=== PATIENT | female | born 1990 | race Caucasian/White ===

== ENCOUNTER 2016-07-27 00:32 | Emergency (ER) | payer SELFPAY ==
[2016-07-27 00:37] VITALS: BMI 27.3
[2016-07-27] MEDS ORDERED: Sodium Chloride 0.9% 1,000 ML IV STA (00:51)
[2016-07-27 00:52] VITALS: TEMP 97.9
--- NOTE | 2016-07-27 00:52 | ED PDOC ---
Arrival/HPI - General Chief Complaint: Shortness Of Breath Time Seen by Provider: 07/27/16 00:35 Historian: Patient, Spouse - History of Present Illness Narrative History of Present Illness (Text): 07/27/16 00:47 Savi Fabian is a 25 year old female who presents to the ED accompanied by spouse complaining epigastric pain. states patient began experiencing epigastric pain, worsened with deep inspirations, and shortness of breath tonight. notes patient recently gave 1 1/2 months ago. Patient denies any fever, chills, chest pain, nausea, vomiting, diarrhea, urinary symptoms, back pain, neck pain, headache, dizziness, or any other complaints. Time/Duration: Prior to Arrival Symptom Course: Unchanged Activities at Onset: Rest, Light Context: Home Past Medical History - Provider Review Nursing Documentation Reviewed: Yes - Cardiac Hx Cardiac Disorders: No - Pulmonary Hx Respiratory Disorders: No - Neurological Hx Neurological Disorder: No - HEENT Hx HEENT Disorder: No - Renal Hx Renal Disorder: No - Endocrine/Metabolic Hx Endocrine Disorders: No - Hematological/Oncological Hx Blood Disorders: No - Integumentary Hx Dermatological Disorder: No - Musculoskeletal/Rheumatological Hx Musculoskeletal Disorders: No - Gastrointestinal Hx Gastrointestinal Disorders: No - Genitourinary/Gynecological Hx Genitourinary Disorders: No - Psychiatric Hx Psychophysiologic Disorder: No Hx Substance Use: No - Anesthesia Hx Anesthesia: No Hx Anesthesia Reactions: No Family/Social History - Physician Review Nursing Documentation Reviewed: Yes Family/Social History: No Known Family HX Smoking Status: Never Smoked Hx Alcohol Use: No Hx Substance Use: No Allergies/Home Meds Allergies/Adverse Reactions: Allergies No Known Allergies Allergy (Verified 07/27/16 00:36) Review of Systems - Physician Review All systems were reviewed & negative as marked: Yes - Review of Systems Constitutional: Normal. absent: Fevers Eyes: Normal ENT: Normal Respiratory: SOB. absent: Cough Cardiovascular: Normal. absent: Chest Pain Gastrointestinal: Abdominal Pain. absent: Diarrhea, Nausea, Vomiting Genitourinary Female: Normal. absent: Dysuria, Frequency, Hematuria, Urine Output Changes Musculoskeletal: Normal. absent: Back Pain, Neck Pain Skin: Normal. absent: Rash Neurological: Normal. absent: Headache, Dizziness Endocrine: Normal Hemo/Lymphatic: Normal Psychiatric: Normal Physical Exam Vital Signs Reviewed: Yes Vital Signs Temp Pulse Resp BP Pulse Ox 07/27/16 02:33 76 16 98 07/27/16 02:16 82 20 111/72 99 07/27/16 00:51 97.9 F 76 20 131/78 100 07/27/16 00:45 16 100 07/27/16 00:37 82 18 98 Temperature: Afebrile Blood Pressure: Normal Pulse: Regular Respiratory Rate: Normal Appearance: Positive for: Well-Appearing, Non-Toxic, Comfortable Pain Distress: None Mental Status: Positive for: Alert and Oriented X 3 - Systems Exam Head: Present: Atraumatic, Normocephalic Pupils: Present: PERRL Extroacular Muscles: Present: EOMI Conjunctiva: Present: Normal Mouth: Present: Moist Mucous Membranes Neck: Present: Normal Range of Motion Respiratory/Chest: Present: Clear to Auscultation, Good Air Exchange. No: Respiratory Distress, Accessory Muscle Use Cardiovascular: Present: Regular Rate and Rhythm, Normal S1, S2. No: Murmurs Abdomen: Present: Tenderness (Epigastric tenderness), Normal Bowel Sounds. No: Distention, Peritoneal Signs Back: Present: Normal Inspection Upper Extremity: Present: Normal Inspection. No: Cyanosis, Edema Lower Extremity: Present: Normal Inspection. No: Edema Neurological: Present: GCS=15, CN II-XII Intact, Speech Normal Skin: Present: Warm, Dry, Normal Color. No: Rashes Psychiatric: Present: Alert, Oriented x 3, Normal Insight, Normal Concentration Medical Decision Making ED Course and Treatment: 07/27/16 00:47 Impression: 25 year old female complaining of epigastric pain and shortness of breath tonight. Plan: -- EKG -- Labs, cardiac enzymes, lipase, amylase -- Urinalysis -- IV fluids -- Zofran -- Toradol -- Reassess and disposition Progress Notes: 07/27/16 01:36 Reviewed EKG, NSR at [address]-segment elevations or depressions, no T-wave inversions, normal intervals. 07/27/16 02:31 On re-evaluation, the patient feels better and is in no acute distress. I have discussed the results and plan with the patient, who expresses understanding. Patient in agreement with plan to discharged home. Patient is stable for discharge. Patient was instructed to follow up with physician/clinic in 1-2 days or return if symptoms worsen or new concerning symptoms arise. Re-evaluation Time: 02:24 Reassessment Condition: Re-examined, Improved - Lab Interpretations Lab Results: 07/27/16 00:45 07/27/16 00:45 Lab Results 07/27/16 01:20: Urine Color Yellow, Urine Appearance Slight-cloudy, Urine pH 8.0 , Ur Specific [place] 1.015, Urine Protein Trace H, Urine Glucose (UA) Negative , Urine Ketones Negative, Urine Blood Small H, Urine Nitrate Negative, Urine Bilirubin Negative, Urine Urobilinogen 1.0 H, Ur Leukocyte Esterase Small H, Urine RBC 0 - 2, Urine WBC 2 - 5, Ur Epithelial Cells 1 - 3, Urine Bacteria Mod 07/27/16 00:45: WBC 8.1, RBC 4.53, Hgb 12.5, Hct 38.5, MCV 85.0, MCH 27.6, MCHC 32.5, RDW 13.6, Plt Count 398, MPV 10.2, Gran % 46.7 L, Lymph % (Auto) 47.5 H, [place] % (Auto) 4.3, Eos % (Auto) 1.4 L, Baso % (Auto) 0.1, Gran # 3.78, Lymph # 3.9 H, [place] # 0.4, Eos # 0.1, Baso # 0.01, PT 10.4, INR 0.96, APTT 29.2, Sodium 139, Potassium 4.4, Chloride 98, Carbon Dioxide 30, Anion Gap 15, BUN 21, Creatinine 0.8, Est GFR ( Amer) > 60, Est GFR (Non-Af Amer) > 60, Random Glucose 106, Calcium 9.6, Total Bilirubin 0.5, AST 59 H, ALT 34, Alkaline Phosphatase 125, Lactate Dehydrogenase 493, Total Creatine Kinase 73, Troponin I < 0.01, Total Protein 8.7 H, Albumin 4.5, Globulin 4.3, Albumin/Globulin Ratio 1.0 L, Amylase 96, Lipase 103 I have reviewed the lab results: Yes - EKG Interpretation Interpreted by ED Physician: Yes Type: 12 lead EKG - Medication Orders Current Medication Orders: Discontinued Medications Sodium Chloride (Sodium Chloride 0.9%) 1,000 mls @ 100 mls/hr IV .Q10H STA Stop: 07/27/16 10:50 Last Admin: 07/27/16 01:14 Dose: 100 MLS/HR eMAR Start Stop Document 07/27/16 01:14 [email or web address] (Rec: 07/27/16 01:14 [email or web address] [id number]) Intravenous Solution Start Date 07/27/16 Start Time 01:14 End Date 07/27/16 Ketorolac Tromethamine (Toradol) 30 mg IVP STAT STA Stop: 07/27/16 00:52 Last Admin: 07/27/16 01:14 Dose: 30 MG IVP Administration Document 07/27/16 01:14 [email or web address] (Rec: 07/27/16 01:14 [email or web address] [id number]) Charges for Administration # of IVP Administrations 1 Ondansetron HCl (Zofran Inj) 4 mg IVP STAT STA Stop: 07/27/16 00:52 Last Admin: 07/27/16 01:14 Dose: 4 MG IVP Administration Document 07/27/16 01:14 [email or web address] (Rec: 07/27/16 01:14 [email or web address] [id number]) Charges for Administration # of IVP Administrations 1 - Scribe Statement The provider has reviewed the documentation as recorded by the Olivia Palomares Provider Attestation: All medical record entries made by the Olivia were at my direction and personally dictated by me. I have reviewed the chart and agree that the record accurately reflects my personal performance of the history, physical exam, medical decision making, and the department course for this patient. I have also personally directed, reviewed, and agree with the discharge instructions and disposition. Disposition/Present on Arrival - Present on Arrival Any Indicators Present on Arrival: No History of DVT/PE: No History of Uncontrolled Diabetes: No Urinary Catheter: No History of Decub. Ulcer: No History Surgical Site Infection Following: None - Disposition Have Diagnosis and Disposition been Completed?: Yes Diagnosis: Abdominal pain Disposition: HOME/ ROUTINE Disposition Time: 02:24 Condition: GOOD Discharge Instructions (ExitCare): Abdominal Pain (ED)
[2016-07-27 00:59] LABS: ADD MANUAL DIFF? NO
[2016-07-27 01:07] LABS: BASO # 0.01 K/mm3 (0.0-2.0); BASO % 0.1 % (0.0-3.0); EOS # 0.1 (0.0-0.7); EOS % 1.4 % (1.5-5.0); GRAN # 3.78 (1.4-6.5); GRAN % 46.7 % (50.0-68.0); HEMATOCRIT 38.5 % (36.0-48.0); LYMPH # 3.9 (1.2-3.4); LYMPH % 47.5 % (22.0-35.0); MEAN CORPUSCULAR HEMOGLOBIN 27.6 pg (25.0-35.0); MEAN CORPUSCULAR HGB CONC 32.5 g/dl (31.0-37.0); MEAN PLATELET VOLUME 10.2 fl (7.0-11.0); MONO # 0.4 (0.1-0.6); MONO % 4.3 % (1.0-6.0); PLATELET COUNT 398 10^3/uL (120.0-450.0); RED CELL DISTRIBUTION WIDTH 13.6 % (11.5-14.5); WHITE BLOOD COUNT 8.1 10^3/ul (4.5-11.0)
[2016-07-27 01:13] LABS: INR 0.96 (0.93-1.08); PARTIAL THROMBOPLASTIN TIME 29.2 Seconds (23.7-30.8)
[2016-07-27 01:17] LABS: ALKALINE PHOSPHATASE 125 U/L (38-133); ALT/SGPT 34 U/L (7-56); AMYLASE 96 U/L (35-125); AST/SGOT 59 U/L (15-39); BILIRUBIN,TOTAL 0.5 mg/dL (0.2-1.3); BLOOD UREA NITROGEN 21 mg/dL (7-21); CALCIUM 9.6 mg/dL (8.4-10.5); CARBON DIOXIDE 30 mmol/L (21-33); CHLORIDE 98 mmol/L (98-107); GFR AFRICAN-AMERICAN > 60; GLUCOSE,RANDOM 106 mg/dL (70-110); LIPASE 103 U/L (23-300); POTASSIUM 4.4 mmol/L (3.6-5.0); SODIUM 139 mmol/L (132-148); TOTAL PROTEIN 8.7 g/dL (5.8-8.3)
[2016-07-27 01:34] LABS: URINE BILIRUBIN NEGATIVE (NEGATIVE); URINE BLOOD SMALL (NEGATIVE); URINE GLUCOSE (UA) NEGATIVE (NEGATIVE); URINE KETONE NEGATIVE (NEGATIVE); URINE LEUKOCYTE ESTERASE SMALL Leu/uL (NEGATIVE); URINE PROTEIN TRACE mg/dL (<30 mg/dL)
[2016-07-27 01:46] LABS: URINE APPEARANCE SLIGHT-CLOUDY (CLEAR); URINE COLOR YELLOW (YELLOW); URINE RBC 0 - 2 /hpf (0-2)
[2016-07-27 01:47] LABS: URINE BACTERIA MOD (NEG)
[2016-07-27 01:53] LABS: TROPONIN I < 0.01 ng/mL
[2016-07-27 02:17] VITALS: BP 111/72
[2016-07-27 02:39] VITALS: PULSE 76; RESP 16; O2SAT 98
--- NOTE | 2016-07-27 19:02 | CARD ---
APPROVED REPORT EKG Measurement Heart [id number] <Conclusion> Normal sinus rhythm Normal ECG
== END 2016-07-27 02:33 | disposition home or self-care (01) ==
LOC: EDBD → ED 00:32
DX: R10.9 Unspecified abdominal pain (principal)
CPT/HCPCS: 80053; 81001; 82150; 82550; 83615; 83690; 84484; 85025; 85610; 85730; 87086; 93005; 96374; 96375; 99284; J1885; J2405; J7040